=== PATIENT | female | born 1980 | race Caucasian/White ===

== ENCOUNTER 2016-09-02 08:35 | Emergency (ER) | payer BC, OTHER ==
[~2016-09-02] VITALS: Ht 160 cm; Wt 73.0 kg
[~2016-09-02 08:35] MED LIST: BCPILLS PO; DRV100 PO; [UNRECOGNIZED DRUG - OTHER] PO
[2016-09-02 08:42] VITALS: Ht 160 cm; Wt 73.0 kg
[2016-09-02] MEDS ORDERED: KETOROLAC TROMETHAMINE 30 MG/ML VIAL IV STA (08:52)
[2016-09-02] MEDS ORDERED: DIAZEPAM INJ 5 MG/ML 2 ML CARP IV STA (08:52)
--- NOTE | 2016-09-02 09:12 | EMERGENCY ROOM VISIT NOTE ---
History First contact with patient: 08:42 Chief Complaint: BACK PAIN Stated Complaint: BACK PAIN History of Present Illness The patient is a 36 year old female who presents to the Emergency Room with complaints of back pain. The patient states that she was vacuuming this morning and felt a pulling sensation in the right side of her low back. She states the pain is severe and she is unable to move. She rates her discomfort a 10/10. She denies any falls. She denies any fevers. She denies any abdominal pain, vomiting. She denies any numbness, tingling, weakness or pain in the legs. She denies any loss of bowel or bladder control. She denies any previous history of back pain or problems. Review of Systems A 10 system review of systems was completed with positives and pertinent negatives listed in the HPI. Past Medical/Surgical History Patient denies Social History Smoking Status: Never Smoker Housing Status: lives with family Current/Historical Medications Scheduled Cyclobenzaprine Hcl (Flexeril), 10 MG PO TID [Dostenex], 0.25 MG PO WK Scheduled PRN Ibuprofen (Motrin), 600 MG PO Q6H PRN for Pain Oxycodone Ir (Roxicodone Ir), 1-2 TAB PO Q4H PRN for Pain Allergies Coded Allergies: No Known Allergies (Unverified , 09/02/16) Physical Exam Vital Signs Date Time Temp Pulse Resp B/P (MAP) Pulse Ox O2 Delivery O2 Flow Rate FiO2 09/02/16 13:33 36.7 96 18 103/54 98 09/02/16 10:40 70 18 109/71 99 Room Air 09/02/16 09:48 68 16 81/58 100 Room Air 09/02/16 08:42 36.7 81 16 118/75 98 Room Air Physical Exam VITALS: Vitals are noted on the nurse's note and reviewed by myself. Vital signs stable. GENERAL: This is a 36-year-old female, in no acute distress, nondiaphoretic, well-developed well-nourished. SKIN: The skin was without rashes, erythema, edema, or bruising. There is no tenting of the skin. Capillary reflex less than 2 seconds. HEAD: Normocephalic atraumatic. EARS: The external ears are normal in appearance EYES: Pupils equal round and reactive to light and accommodation. Conjunctivae without injection, sclerae without icterus. Extraocular movements intact. NOSE: Patent, turbinates without inflammation or discharge. No sinus tenderness. MOUTH: Mucous membranes moist. Tonsils are not enlarged. Pharynx without erythema or exudate. Uvula midline. Airway patent. Tongue does not deviate. NECK: Supple without nuchal rigidity. No lymphadenopathy. No thyromegaly. Cervical spine is nontender. No JVD. HEART: Regular rate and rhythm without murmurs gallops or rubs. LUNGS: Clear to auscultation bilaterally without wheezes, rales or rhonchi. No retractions or accessory muscle use. ABDOMEN: Positive bowel sounds x 4. Soft, nontender, without masses or organomegaly. MUSCULOSKELETAL: No muscle atrophy, erythema, or edema noted. Full range of motion without joint tenderness in all extremities. There is an obvious very large muscle spasm in the right paraspinous muscles of the low back. There is tenderness to palpation in this area. There is no tenderness to palpation over the vertebrae. The remaining extremities are unremarkable. NEURO: Patient was alert and oriented to person place and time. Normal sensation to light and sharp touch. Deep tendon reflexes 2+ throughout. No focal neurological deficits. Medical Decision & Procedures Laboratory Results 09/02/16 09:15 Red Blood Count 4.37, Mean Corpuscular Volume 91.1, Mean Corpuscular Hemoglobin 31.6, Mean Corpuscular Hemoglobin Concent 34.7, Mean Platelet Volume 10.5, Neutrophils (%) (Auto) 55.1, Lymphocytes (%) (Auto) 34.0, Monocytes (%) (Auto) 7.7, Eosinophils (%) (Auto) 2.5, Basophils (%) (Auto) 0.7, Neutrophils # (Auto) 2.43, Lymphocytes # (Auto) 1.50, Monocytes # (Auto) 0.34, Eosinophils # (Auto) 0.11, Basophils # (Auto) 0.03 09/02/16 09:15 Test 09/02/16 09:15 White Blood Count 4.41 K/uL (4.8-10.8) Red Blood Count 4.37 M/uL (4.2-5.4) Hemoglobin 13.8 g/dL (12.0-16.0) Hematocrit 39.8 % (37-47) Mean Corpuscular Volume 91.1 fL (80-100) Mean Corpuscular Hemoglobin 31.6 pg (25-34) Mean Corpuscular Hemoglobin Concent 34.7 g/dl (32-36) Platelet Count 191 K/uL (130-400) Mean Platelet Volume 10.5 fL (7.4-10.4) Neutrophils (%) (Auto) 55.1 % Lymphocytes (%) (Auto) 34.0 % Monocytes (%) (Auto) 7.7 % Eosinophils (%) (Auto) 2.5 % Basophils (%) (Auto) 0.7 % Neutrophils # (Auto) 2.43 K/uL (1.4-6.5) Lymphocytes # (Auto) 1.50 K/uL (1.2-3.4) Monocytes # (Auto) 0.34 K/uL (0.11-0.59) Eosinophils # (Auto) 0.11 K/uL (0-0.5) Basophils # (Auto) 0.03 K/uL (0-0.2) RDW Standard Deviation 45.3 fL (36.4-46.3) RDW Coefficient of Variation 13.5 % (11.5-14.5) Immature Granulocyte % (Auto) 0.0 % Immature Granulocyte # (Auto) 0.00 K/uL (0.00-0.02) Anion Gap 6.0 mmol/L (3-11) Est Creatinine Clear Calc Drug Dose 110.0 ml/min Estimated GFR () 130.1 Estimated GFR (Non- 112.3 BUN/Creatinine Ratio 20.6 (10-20) Calcium Level 8.9 mg/dl (8.5-10.1) Medications Administered Medications (Trade) Dose Ordered Sig/Micah Route Start Time Stop Time Status Last Admin Dose Admin Diazepam (Valium Inj) 5 mg NOW STAT IV 09/02/16 08:52 09/02/16 08:53 DC 09/02/16 09:20 5 MG Ketorolac Tromethamine (Toradol Inj) 30 mg NOW STAT IV 09/02/16 08:52 09/02/16 08:53 DC 09/02/16 09:20 30 MG Morphine Sulfate (MoRPHine SULFATE INJ) 4 mg NOW STAT IV 09/02/16 10:45 09/02/16 10:47 DC 09/02/16 11:04 4 MG Sodium Chloride 1,000 ml @ 999 mls/hr Q1H1M STAT IV 09/02/16 12:18 09/02/16 13:18 DC 09/02/16 12:18 999 MLS/HR ED Course The patient was seen and examined. Previous visits were reviewed. The patient had pain in the right side of the low back while vacuuming today. She appears to have a very large muscle spasm. She does not have any neurologic deficit on exam or by history. The patient was given 5 mg IV Valium and 30 mg IV Toradol with mild improvement in her pain but she still stated she had significant discomfort with ambulation She was then given 4 mg IV morphine The patient was feeling better and couldn't get up and move around. She requested to be discharged home. After changing positions, the patient became hypotensive, dizzy and lightheaded. This is likely secondary to the medications. She was hydrated with normal saline and monitored until she was feeling better and discharged. She will be given prescriptions for Flexeril and pain medication. She should return to the ER with any worsening symptoms. Medical Decision DIFFERENTIAL DIAGNOSIS: Lumbar strain, degenerative disc disease, spondylolisthesis, herniated disc, spinal stenosis, osteoporosis, fracture, cauda equina syndrome, neoplasm, infection, inflammatory arthritis, among others. [facility] Monitoring Program Search Results: patient reviewed within database, no issues identified Impression Primary Impression: Acute lumbar myofascial strain Additional Impression: Muscle spasm of back Departure Information Dispostion Home / Self-Care Condition GOOD Prescriptions Cyclobenzaprine Hcl (FLEXERIL) 10 Mg Tab 10 MG PO TID for 10 Days, #30 TAB Prov: Katelin Ruiz PA-C 09/02/16 Oxycodone Ir (Roxicodone Ir) 5 Mg Tab 1-2 TAB PO Q4H Y for Pain, #36 TAB For Initial Treatment Prov: Katelin Ruiz PA-C 09/02/16 Ibuprofen (Motrin) 600 Mg Tab 600 MG PO Q6H Y for Pain, #30 TAB Prov: Katelin Ruiz PA-C 09/02/16 Referrals No Doctor, Assigned (PCP) Fransisco Garcia, DO Patient Instructions ED Spasm Back No Trauma, ED Sprain Strain Lumbar, [facility] Additional Instructions Motrin 600 mg every 6-8 hours or moderate pain OxyIR 1-2 tablets every 4-6 hours for severe pain. Do not drink alcohol or drive when taking the oxycodone. It may cause some degree of constipation. Flexeril every 8 hours as needed for muscle spasm. It will also make you sleepy. No driving when taking it. Return with any worsening symptoms, loss of bowel or bladder control, numbness, tingling, weakness in the extremities, fevers or generalized worsening symptoms. Problem Qualifiers
[2016-09-02 09:29] LABS: BASO % 0.7 %; BASO ABS # 0.03 K/uL (0-0.2); COMPLETE YES; EOS % 2.5 %; HEMATOCRIT 39.8 % (37-47); MEAN CELL VOLUME 91.1 fL (80-100); MEAN CORPUSCULAR HEMOGLOBIN 31.6 pg (25-34); MEAN CORPUSCULAR HGB CONC 34.7 g/dl (32-36); MEAN PLATELET VOLUME 10.5 fL (7.4-10.4); MONO % 7.7 %; NEUT % 55.1 %; PLATELET COUNT 191 K/uL (130-400); RED BLOOD COUNT 4.37 M/uL (4.2-5.4); WHITE BLOOD COUNT 4.41 K/uL (4.8-10.8)
[2016-09-02 10:06] LABS: BUN/CREATININE RATIO 20.6 (10-20); CALCIUM 8.9 mg/dl (8.5-10.1); CREATININE 0.67 mg/dl (0.60-1.20); POTASSIUM 3.9 mmol/L (3.5-5.1)
[2016-09-02] MEDS ORDERED: MoRPHine SULFATE 4 MG/ML 1 ML CARP\\VIAL IV STA (10:45)
[2016-09-02] MEDS ORDERED: OXYC1TAB3 PO (11:46)
[2016-09-02] MEDS ORDERED: IBUP600T44 PO (11:46)
[2016-09-02] MEDS ORDERED: CYCL10TA6 PO (11:46)
[2016-09-02] MEDS ORDERED: SODIUM CHLORIDE 0.9% 1000ML 1,000 ML IV STA (12:18)
[2016-09-02 13:33] VITALS: BP 103/54; PULSE 96; TEMP 36.7; O2SAT 98
== END 2016-09-02 13:27 | disposition home or self-care (01) ==
LOC: EDBD 08:35 → EDSEX 08:35 → C.EDA 08:36
DX: S39.012A Strain of muscle, fascia and tendon of lower back, initial encounter (principal); X50.1XXA Overexertion from prolonged static or awkward postures, initial encounter; M62.830 Muscle spasm of back